=== PATIENT | female | born 1940 | race African-American/Black ===

== ENCOUNTER 2018-08-10 14:01 | Observation (INO) | payer OTHER ==
--- NOTE | 2018-08-10 14:34 | PDOC ---
History of Present Illness - History of Present Illness Initial Comments: 08/10/18 14:55 The patient is a 77 year old female with a history of HTN, HLD, DM who presents for evaluation following a syncopal episode. The patient reports that she was standing in line at the bank today when she experienced a syncopal episode with LOC for a few seconds. She states that she is unsure why she syncopized but noted that she felt "off" and lightheaded just prior to "passing out". She states that someone else in line caught her and she did not hit her head. She denies having syncopal episodes in the past and otherwise denies fevers, chills , headache, SOB, chest pain, numbness, tingling, weakness, tongue biting, abdominal pain, nausea, vomiting, incontinence, or changes with urination or bowel movements. <Gustavo Holguin - Last Filed: 08/11/18 13:13> <Bianca Valentin - Last Filed: 08/14/18 09:40> - General Chief Complaint: Syncope/Near Syncope Stated Complaint: Syncope/Near Syncope Time Seen by Provider: 08/10/18 14:34 Past History - Past Medical History Anemia: No Asthma: No Cancer: No Cardiac Disorders: No CVA: No COPD: No CHF: No Dementia: No Diabetes: Yes GI Disorders: No Disorders: No HTN: Yes Hypercholesterolemia: Yes Liver Disease: No Seizures: No Thyroid Disease: No - Immunization History Td Vaccination: Yes TDAP Vaccination: No Immunization Up to Date: Yes - Suicide/Smoking/Psychosocial Hx Smoking History: Unknown if ever smoked Hx Alcohol Use: No Drug/Substance Use Hx: No Substance Use Type: None Hx Substance Use Treatment: No <Gustavo Holguin - Last Filed: 08/11/18 13:13> <Bianca Valentin - Last Filed: 08/14/18 09:40> - Past Medical History Allergies/Adverse Reactions: Allergies Allergy/AdvReac Type Severity Reaction Status Date / Time No Known Drug Allergies Allergy Verified 08/10/18 14:32 Home Medications: Ambulatory Orders Amlodipine Besylate [Norvasc -] 10 mg PO DAILY 05/27/14 Atenolol [Tenormin -] 50 mg PO BID 05/27/14 Atorvastatin Ca [Lipitor -] 10 mg PO HS 05/27/14 metFORMIN XR [Glucophage *Xr* -] 1,000 mg PO BID 05/27/14 Saxagliptin HCl [Onglyza] 2.5 mg PO DAILY 01/29/18 Review of Systems - Review of Systems Comments:: 08/10/18 14:58 Constitutional: No fevers, chills, fatigue, malaise HEENT: No Rhinorrhea, nasal congestion, visual changes Cardiovascular: Syncope, Lightheadedness. No chest pain, palpitations, Respiratory: No Cough, SOB, Hemoptysis, Gastrointestinal: No Abdominal pain, Nausea, Vomiting, Constipation, Diarrhea, Melena Genitourinary: No Dysuria, Frequency, Urgency, Hesitancy, Hematuria, Flank pain Musculoskeletal: No Myalgia, arthralgia Skin: No rashes, itching, bruising, pallor Neurologic: No Headache, Dizziness, Numbness, Weakness, or Tingling Psychiatric: No Hallucinations. No SI or HI <Gustavo Holguin - Last Filed: 08/11/18 13:13> *Physical Exam - Vital Signs Last Vital Signs Temp Pulse Resp BP Pulse Ox 99.5 F 90 18 111/90 99 08/10/18 14:31 08/10/18 14:31 08/10/18 14:31 08/10/18 14:31 08/10/18 14:31 - Physical Exam Comments: 08/10/18 15:13 General Appearance: Nourished. No Apparent Distress HEENT: EOMI, YOSSI. No Pharyngeal Erythema, Tonsillar Exudate, Tonsillar Erythema Neck: No Cervical Lymphadenopathy Respiratory/Chest: Lungs Clear, Normal Breath Sounds. No Crackles, Rales, Rhonchi, Wheezing Cardiovascular: Regular Rhythm, Regular Rate. No Murmur, Gallops, Rubs Gastrointestinal/Abdominal: Normal Bowel Sounds, Soft. No Guarding, Rebound, Tenderness Musculoskeletal: No CVA Tenderness Extremity: Normal Capillary Refill Integumentary: Normal Color, Dry, Warm Neurologic: rental representative II-XII NML intact, Fully Oriented, Alert, Normal Mood/Affect, Normal Response, Motor Strength 5/5. <Gustavo Holguin - Last Filed: 08/11/18 13:13> - Vital Signs Last Vital Signs Temp Pulse Resp BP Pulse Ox 99.5 F 70 17 142/87 98 08/10/18 14:31 08/10/18 22:55 08/10/18 22:55 08/10/18 22:55 08/10/18 22:55 <Bianca Valentin - Last Filed: 08/14/18 09:40> Moderate Sedation - Procedure Monitoring Vital Signs: Procedure Monitoring Vital Signs Temperature 99.5 F 08/10/18 14:31 Pulse Rate 90 08/10/18 14:31 Respiratory Rate 18 08/10/18 14:31 Blood Pressure 111/90 08/10/18 14:31 O2 Sat by Pulse Oximetry (%) 99 08/10/18 14:31 <Gustavo Holguin - Last Filed: 08/11/18 13:13> - Procedure Monitoring Vital Signs: Procedure Monitoring Vital Signs Temperature 99.5 F 08/10/18 14:31 Pulse Rate 70 08/10/18 22:55 Respiratory Rate 17 08/10/18 22:55 Blood Pressure 142/87 08/10/18 22:55 O2 Sat by Pulse Oximetry (%) 98 08/10/18 22:55 <Bianca Valentin - Last Filed: 08/14/18 09:40> ED Treatment Course - LABORATORY CBC & Chemistry Diagram: 08/10/18 14:59 08/10/18 14:47 <Gustavo Holguin - Last Filed: 08/11/18 13:13> - LABORATORY CBC & Chemistry Diagram: 08/10/18 14:59 08/10/18 14:47 - ADDITIONAL ORDERS Additional order review: 08/10/18 14:59 RBC 4.74 MCV 85.5 MCHC 32.9 RDW 14.0 MPV 8.0 Neutrophils % 79.3 D Lymphocytes % 10.6 D Monocytes % 9.5 Eosinophils % 0.2 Basophils % 0.4 - Medications Given in the ED: ED Medications Discontinued Medications Generic Name Dose Route Start Last Admin Trade Name Freq PRN Reason Stop Dose Admin Atenolol 50 mg 08/10/18 22:00 08/10/18 22:12 Tenormin - PO Not Given BID [facility] Atorvastatin Calcium 10 mg 08/10/18 22:00 08/10/18 22:11 Lipitor - PO Not Given HS [facility] Heparin Sodium (Porcine) 5,000 unit 08/10/18 22:00 08/10/18 22:11 Heparin - SQ Not Given BID [facility] Insulin Aspart 1 vial 08/10/18 22:00 08/10/18 22:11 Novolog Vial Sliding Scale - SQ Not Given ACHS [facility] Protocol <Bianca Valentin - Last Filed: 08/14/18 09:40> Medical Decision Making - Medical Decision Making 08/10/18 15:13 The patient is a 77 year old female with a history of HTN, HLD, DM who presents for evaluation following a syncopal episode. Differential includes but is not limited to: ACS, Arrhythmia, Neurogenic, Infectious, Metabolic Derangement. Given the patient's history and physical exam, we will obtain a cbc, cmp, troponin, ua, chest plain film, ekg to evaluate further. We will continue to monitor and reassess while here in the ED. The patient will likely require observation given the patient's unexplained syncope. 08/10/18 17:13 CBC, cmp, troponin, ua is unremarkable. Chest plain film is unremarkable. Given the patient's unexplained syncope, she will require admission for further monitoring and management. We discussed the case with the admitting team who accepted the patient for admission. <Gustavo Holguin - Last Filed: 08/11/18 13:13> *DC/Admit/Observation/Transfer <Gustavo Holguin - Last Filed: 08/11/18 13:13> - Discharge Dispostion Decision to Admit order: Yes <Bianca Valentin - Last Filed: 08/14/18 09:40> Diagnosis at time of Disposition: Syncope and collapse - Discharge Dispostion Condition at time of disposition: Fair
[2018-08-10 14:39] VITALS: TEMP 99.5; BMI 28.3
--- NOTE | 2018-08-10 14:47 | PDOC ---
Attending Attestation - Resident Resident Name: Gustavo Holguin - ED Attending Attestation I have performed the following: I have examined & evaluated the patient, The case was reviewed & discussed with the resident, I agree w/resident's findings & plan - HPI HPI: 08/10/18 15:57\ The patient is a 77 year old female, with a significant past medical history of HTN, hyperlipidemia and DM who presents to the emergency department [place]/p syncope at the bank today. She states she was standing on the bank like, felt lightheaded, and then reportedly passed out for a few seconds. She states someone caught her before she could fall to the floor and denies head trauma. no prior sx of similar sx. The patient denies chest pain, shortness of breath, headache and dizziness. The patient denies fever, chills, nausea, vomit, diarrhea and constipation. The patient denies dysuria, frequency, urgency and hematuria. Allergies: NKDA PCP - Dr. Lou 08/10/18 16:24 - Physicial Exam PE: 08/10/18 15:57 NAD, well appearing, MMM, nl conjunctiva, anicteric; neck supple. lungs clear, RRR, no murmur. no JVD. abdomen soft nontender. KENNEDY x4, no focal neuro deficits. No peripheral edema. normal color for ethnicity, WWP. 08/10/18 16:24 - Medical Decision Making 08/10/18 16:24 I, Bianca Valentin MD, attest that this document has been prepared under my direction and personally reviewed by me in its entirety. I further attest, that it accurately reflects all work, treatment, procedures and medical decision -making performed by me. See HPI for details DDx. syncope, cardiogenic vs neurogenic, arrhythmia, angina, aortic stenosis, valvular heart disease, anemia, electrolyte/metabolic derangements, infection. vasovagal. Vital signs reviewed, wnl. Prior notes reviewed, including admissions, discharges and consultations. laboratory results and imaging reviewed, basic labs and lytes wnl, neg trop, so doubt ACS. EKG normal sinus rhythm, no interval abnormalities, narrow QRS, ST and T wave segments and morphology normal. Nonischemic ED course: no acute events, asymptomatic. admit for syncope workup, no prodrome sx and elderly age. 08/10/18 16:24 08/10/18 16:25 Heart Score/ECG Review - ECG Impressions Normal ECG: Yes Comment:: 08/10/18 16:25 EKG normal sinus rhythm, no interval abnormalities, narrow QRS, ST and T wave segments and morphology normal. Nonischemic
[2018-08-10 15:15] LABS: BASO % 0.4 % (0-2.0); EOS % 0.2 % (0-4.5); HEMATOCRIT 40.5 % (32.4-45.2); HEMOGLOBIN 13.3 GM/dL (10.7-15.3); LYMPH % 10.6 % (8-40); MCH 28.1 pg (25.7-33.7); MCHC 32.9 g/dl (32.0-36.0); MEAN CELL VOLUME 85.5 fl (80-96); MONO % 9.5 % (3.8-10.2); NEUT % 79.3 % (42.8-82.8); PLATELET COUNT 286 K/MM3 (134-434); RBC 4.74 M/mm3 (3.60-5.2)
--- NOTE | 2018-08-10 15:46 | EKG ---
Test Reason : Blood Pressure : / mmHG Vent. Rate : 084 BPM Atrial Rate : 084 BPM P-R Int : 156 ms QRS Dur : 080 ms QT Int : 390 ms P-R-T Axes : 070 021 052 degrees QTc Int : 460 ms NORMAL SINUS RHYTHM POSSIBLE LEFT ATRIAL ENLARGEMENT BORDERLINE ECG WHEN COMPARED WITH ECG OF 31-AUG-2014 13:42, NO SIGNIFICANT CHANGE WAS FOUND Confirmed by YINA YOON, ЕКАТЕРИНА ([id number]) on 08/10/2018 3:46:01 PM Referred By: Confirmed By:ЕКАТЕРИНА BRAN MD
[2018-08-10 15:49] LABS: ALBUMIN 4.1 g/dl (3.4-5.0); ALK PHOS 110 U/L (45-117); ANION GAP 9 MMOL/L (8-16); BILIRUBIN,TOTAL 0.5 mg/dL (0.2-1); BLOOD UREA NITROGEN 14 mg/dL (7-18); CALCIUM 8.8 mg/dL (8.5-10.1); CHLORIDE 104 mmol/L (98-107); CO2 28 mmol/L (21-32); CREATININE 0.8 mg/dL (0.55-1.3); GLUCOSE,RANDOM 124 mg/dL (74-106); POTASSIUM 4.1 mmol/L (3.5-5.1); SGOT/AST 21 U/L (15-37); SGPT/ALT 17 U/L (13-61); SODIUM 141 mmol/L (136-145)
[2018-08-10] MEDS ORDERED: ACETAMINOPHEN 325 MG TABLET (FP) PO PRN (18:48)
[2018-08-10 18:54] VITALS: PULSE 70
--- NOTE | 2018-08-10 19:04 | HP ---
CHIEF COMPLAINT: PCP: HISTORY OF PRESENT ILLNESS: Bruce Sotomayor is a 77 year old female with a history of HTN, HLD, DM who presents for evaluation following a syncopal episode. patient seen in ED, DAVIS qureshi, reports walking to [employer], waiting on line, started feeling hot and unbuttoned her coat, felt lightheaded and passed out, denies LOC, hitting head, pt denies dizziness, chest pain, sob. pt took AM meds before leaving for [employer], pt did not check blood sugar before taking meds. ER course was notable for: (1)WBC 12.0 (2)trop neg x1 (3)EKG NSL, no ST wave abnormality Recent Travel: PAST MEDICAL HISTORY:DM, HTN, HLD PAST SURGICAL HISTORY: Social History: Smoking:Denies Alcohol:Denies Drugs: Denies Family History: Allergies No Known Drug Allergies Allergy (Verified 08/10/18 14:32) HOME MEDICATIONS: Home Medications Medication Instructions Recorded Amlodipine Besylate [Norvasc -] 10 mg PO DAILY 05/27/14 Atenolol [Tenormin -] 50 mg PO BID 05/27/14 Atorvastatin Ca [Lipitor -] 10 mg PO HS 05/27/14 metFORMIN XR [Glucophage *Xr* -] 1,000 mg PO BID 05/27/14 Saxagliptin HCl [Onglyza] 2.5 mg PO DAILY 01/29/18 REVIEW OF SYSTEMS CONSTITUTIONAL: Absent: fever, chills, diaphoresis, generalized weakness, malaise, loss of appetite, weight change HEENT: Absent: rhinorrhea, nasal congestion, throat pain, throat swelling, difficulty swallowing, mouth swelling, ear pain, eye pain, visual changes CARDIOVASCULAR: Absent: chest pain, syncope, palpitations, irregular heart rate, lightheadedness , peripheral edema RESPIRATORY: Absent: cough, shortness of breath, dyspnea with exertion, orthopnea, wheezing, stridor, hemoptysis GASTROINTESTINAL: Absent: abdominal pain, abdominal distension, nausea, vomiting, diarrhea, constipation, melena, hematochezia GENITOURINARY: Absent: dysuria, frequency, urgency, hesitancy, hematuria, flank pain, genital pain MUSCULOSKELETAL: Absent: myalgia, arthralgia, joint swelling, back pain, neck pain SKIN: Absent: rash, itching, pallor HEMATOLOGIC/IMMUNOLOGIC: Absent: easy bleeding, easy bruising, lymphadenopathy, frequent infections ENDOCRINE: Absent: unexplained weight gain, unexplained weight loss, heat intolerance, cold intolerance NEUROLOGIC: +lightheadedness, Absent: headache, focal weakness or paresthesias, unsteady gait, seizure, mental status changes, bladder or bowel incontinence PSYCHIATRIC: Absent: anxiety, depression, suicidal or homicidal ideation, hallucinations. PHYSICAL EXAMINATION Vital Signs - 24 hr 08/10/18 08/10/18 08/10/18 14:31 14:45 18:53 Temperature 99.5 F Pulse Rate 90 Pulse Rate [ 70 Apical] Respiratory 18 17 Rate Blood Pressure 111/90 Blood Pressure 151/74 [Right Arm] O2 Sat by Pulse 99 100 Oximetry (%) GENERAL: Awake, alert, and fully oriented, in no acute distress. HEAD: Normal with no signs of trauma. EYES: Pupils equal, round and reactive to light, extraocular movements intact, sclera anicteric, conjunctiva clear. No lid lag. EARS, NOSE, THROAT: Ears normal, nares patent, oropharynx clear without exudates. Moist mucous membranes. NECK: Normal range of motion, supple without lymphadenopathy, JVD, or masses. LUNGS: Breath sounds equal, clear to auscultation bilaterally. No wheezes, and no crackles. No accessory muscle use. HEART: Regular rate and rhythm, normal S1 and S2 without murmur, rub or gallop. ABDOMEN: Soft, nontender, not distended, normoactive bowel sounds, no guarding, no rebound, no masses. No hepatomegaly or splenomegaly. MUSCULOSKELETAL: Normal range of motion at all joints. No bony deformities or tenderness. No CVA tenderness. UPPER EXTREMITIES: 2+ pulses, warm, well-perfused. No cyanosis. No clubbing. No peripheral edema. LOWER EXTREMITIES: 2+ pulses, warm, well-perfused. No calf tenderness. No peripheral edema. NEUROLOGICAL: Cranial nerves II-XII intact. Normal speech. Normal gait. PSYCHIATRIC: Cooperative. Good eye contact. Appropriate mood and affect. SKIN: Warm, dry, normal turgor, no rashes or lesions noted, normal capillary refill. Laboratory Results - last 24 hr 08/10/18 08/10/18 14:47 14:59 WBC 12.0 H RBC 4.74 Hgb 13.3 Hct 40.5 MCV 85.5 MCH 28.1 MCHC 32.9 RDW 14.0 Plt Count 286 MPV 8.0 Absolute Neuts (auto) 9.5 H Neutrophils % 79.3 D Lymphocytes % 10.6 D Monocytes % 9.5 Eosinophils % 0.2 Basophils % 0.4 Nucleated RBC % 0 Sodium 141 Potassium 4.1 Chloride 104 Carbon Dioxide 28 Anion Gap 9 BUN 14 Creatinine 0.8 Creat Clearance w eGFR > 60 Random Glucose 124 H Calcium 8.8 Total Bilirubin 0.5 AST 21 ALT 17 Alkaline Phosphatase 110 Creatine Kinase 260 H Creatine Kinase Index 0.8 CK-MB (CK-2) 2.3 Troponin I < 0.02 Total Protein 8.0 Albumin 4.1 ASSESSMENT/PLAN: Tete Sotomayor is a 77 yr old F,medical condition DM, HTN, HLD admitted under observation for Admitting Diagnosis Syncope Chronic Problems HTN HLD DM A/P: #Syncope -admit to tele -EKG- NSR -trop neg x1 -Echo ordered -Cardio consult -Carotid doppler #mild leukocystosis -will check UA -Chest xray no infiltrates -afebrile, -monitor for now #HTN #HLD -on benicar, norvasc #DM -will hold oral hypoglycemic meds -monitor FS -ISC -Diabetic diet Dispo: requires inpatient treatment DVT prophylaxis: Heparin SQ q12hrs Full Code Visit type - Emergency Visit Emergency Visit: Yes Care time: The patient presented to the Emergency Department on the above date and was hospitalized for further evaluation of their emergent condition. - New Patient This patient is new to me today: Yes Date on this admission: 08/10/18 - Critical Care Critical Care patient: No
[2018-08-10] MEDS ORDERED: ATENOLOL 50 MG TABLET (FP) PO SCH (22:00)
[2018-08-10] MEDS ORDERED: INSULIN SLIDING SCALE (NOVOLOG) 1 VIAL SQ SCH (22:00)
[2018-08-10] MEDS ORDERED: HEPARIN NA (PORCINE) 5,000 UNITS/ML 1ML VIAL SQ SCH (22:00)
[2018-08-10] MEDS ORDERED: ATORVASTATIN CA 10 MG TABLET (FP) PO SCH (22:00)
[2018-08-10] MEDS ORDERED: ATENOLOL 25 MG TABLET (FP) ONE (22:02)
[2018-08-10] MEDS ORDERED: HEPARIN NA (PORCINE) 5,000 UNITS/ML 1ML VIAL ONE (22:03)
[2018-08-10] MEDS ORDERED: ATORVASTATIN CA 10 MG TABLET (FP) ONE (22:03)
[2018-08-11 00:25] VITALS: BP 142/87
--- NOTE | 2018-08-11 00:26 | DS ---
Physical Exam: SUBJECTIVE: Patient seen and examined, pt requesting to leave AMA OBJECTIVE: Vital Signs Period Temp Pulse Resp BP Sys/Walker Pulse Ox Last 24 Hr 99.5 F 70-90 17-18 111-151/74-90 99-100 PHYSICAL EXAM LABS Laboratory Results - last 24 hr 08/10/18 08/10/18 14:47 14:59 WBC 12.0 H RBC 4.74 Hgb 13.3 Hct 40.5 MCV 85.5 MCH 28.1 MCHC 32.9 RDW 14.0 Plt Count 286 MPV 8.0 Absolute Neuts (auto) 9.5 H Neutrophils % 79.3 D Lymphocytes % 10.6 D Monocytes % 9.5 Eosinophils % 0.2 Basophils % 0.4 Nucleated RBC % 0 Sodium 141 Potassium 4.1 Chloride 104 Carbon Dioxide 28 Anion Gap 9 BUN 14 Creatinine 0.8 Creat Clearance w eGFR > 60 Random Glucose 124 H Calcium 8.8 Total Bilirubin 0.5 AST 21 ALT 17 Alkaline Phosphatase 110 Creatine Kinase 260 H Creatine Kinase Index 0.8 CK-MB (CK-2) 2.3 Troponin I < 0.02 Total Protein 8.0 Albumin 4.1 HOSPITAL COURSE: Date of Admission:08/10/18 Date of Discharge: 08/11/18 received call from Nurse Goins in ED, patient and daughter requesting to be discharged, went down to see patient, denies dizziness, chest pain. Advised to stay for syncope work up. pt and daughter declined, Risk and benefits explained which include sob, chest pain, cardiac arrest, . pt signed AMA paper. Advised to follow up with PCP tomorrow. Minutes to complete discharge: 10 Discharge Summary Reason For Visit: SYNCOPE AND COLLAPSE Current Active Problems Syncope and collapse (Acute) Condition: Fair - Instructions Referrals: Antoinette Lou MD [Primary Care Provider] - Disposition: AGAINST MEDICAL ADVICE - Home Medications Comprehensive Discharge Medication List: Ambulatory Orders Amlodipine Besylate [Norvasc -] 10 mg PO DAILY 05/27/14 Atenolol [Tenormin -] 50 mg PO BID 05/27/14 Atorvastatin Ca [Lipitor -] 10 mg PO HS 05/27/14 metFORMIN XR [Glucophage *Xr* -] 1,000 mg PO BID 05/27/14 Saxagliptin HCl [Onglyza] 2.5 mg PO DAILY 01/29/18 This patient is new to me today: No Emergency Visit: Yes ED Registration Date: 08/10/18 Care time: The patient presented to the Emergency Department on the above date and was hospitalized for further evaluation of their emergent condition. Critical Care patient: No - Discharge Referral Referred to [facility] Med P.C[facility] No
[2018-08-11] MEDS ORDERED: amLODIPine BESYLATE 10 MG TABLET (FP) PO SCH (10:00)
== END 2018-08-11 00:25 | disposition left against medical advice (07) | DRG 312 ==
LOC: JER 14:01 → INTOOBSV 17:30 → JERBED 17:30
PROVIDERS: ADMIT Internal Medicine; ATTEND Internal Medicine
DX: R55 Syncope and collapse (principal); I10 Essential (primary) hypertension; E11.9 Type 2 diabetes mellitus without complications; E78.5 Hyperlipidemia, unspecified; D72.829 Elevated white blood cell count, unspecified; Z79.84 Long term (current) use of oral hypoglycemic drugs
CPT/HCPCS: 36415; 71045-TC-FY; 80053; 82550; 82553; 84484; 85025; 93005; 93010; 99284-25; G0378